=== PATIENT | male | born 1945 | race Caucasian/White ===

== ENCOUNTER → 2016-08-15 | Outpatient (CLI) | payer OTHER, BC ==
[~2016-08-15] MED LIST: ADVIN25/60 INH; CHOL100010 PO; DUTA0.5C PO; FENO145T26 PO; HYDR25TA4 PO; MELO15TA4 PO; OXYC7.5T78 PO; TERA1CAP63 PO; TIZA1CAP2 PO
[2016-08-15 12:17] LABS: BASO ABS # 0.04 K/uL (0-0.2); COMPLETE YES; EOS % 4.4 %; HEMATOCRIT 41.2 % (42-52); IG% 0.2 %; LYMPH % 21.2 %; LYMPH ABS # 0.86 K/uL (1.2-3.4); MEAN CELL VOLUME 98.1 fL (80-100); MEAN CORPUSCULAR HEMOGLOBIN 32.6 pg (25-34); MEAN CORPUSCULAR HGB CONC 33.3 g/dl (32-36); MONO % 8.4 %; NEUT % 64.8 %; PLATELET COUNT 187 K/uL (130-400); WHITE BLOOD COUNT 4.05 K/uL (4.8-10.8)
[2016-08-15 12:34] LABS: CALCIUM 9.2 mg/dl (8.5-10.1)
[2016-08-15 12:38] LABS: ALT/SGPT 21 U/L (12-78); BLOOD UREA NITROGEN 23 mg/dl (7-18); BUN/CREATININE RATIO 20.7 (10-20); CARBON DIOXIDE 26 mmol/L (21-32); CHLORIDE 108 mmol/L (98-107); CHOLESTEROL 139 mg/dl (0-200); GLUCOSE 97 mg/dl (70-99); POTASSIUM 3.7 mmol/L (3.5-5.1); SODIUM 141 mmol/L (136-145)
[2016-08-15 12:42] LABS: ALB/GLOB RATIO 1.2 (0.9-2); ALKALINE PHOSPHATASE 32 U/L (45-117); AST/SGOT 23 U/L (15-37); FERRITIN 170.3 ng/ml (8.0-388.0); HDL CHOLESTEROL 69 mg/dl; LDL CHOLESTEROL CALCULATED 63 mg/dl; TRIGLYCERIDES 33 mg/dl (0-150); VERY LOW DENSITY LIPOPROT CALC 7 mg/dl
== END | disposition home or self-care (01) ==
LOC: C.LABPBG 10:32
PROVIDERS: ATTEND Nurse Practitioner Family
DX: J45.909 Unspecified asthma, uncomplicated (principal); E53.8 Deficiency of other specified B group vitamins; E78.00 Pure hypercholesterolemia, unspecified; E55.9 Vitamin D deficiency, unspecified

== ENCOUNTER → 2016-08-16 | Outpatient (CLI) | payer OTHER, BC ==
[~2016-08-16] MED LIST changes: +OPTIRAY 320 IV PRN
--- NOTE | 2016-08-16 11:14 | DIAGNOSTIC IMAGING REPORT ---
CHEST CT WITH CONTRAST CT DOSE: 439.36 mGy.cm HISTORY: R91.8 Multiple pulmonary nodules TECHNIQUE: Multiaxial CT images of the chest were performed following the intravenous administration of contrast. COMPARISON: Chest CTA 10/08/2014. FINDINGS: Mild emphysema. No pleural effusions. No pneumothorax. Stable 4 mm subpleural nodule along the right minor fissure on image 160. A 5 mm subpleural nodular density within the base of the lingula on image 228 favors atelectasis or scarring. There is a stable 5 mm nodule at the base of the right lower lobe on image 233. The central airways are patent. Cholelithiasis. The visualized liver, spleen, and adrenal glands are unremarkable. No mediastinal or hilar lymphadenopathy. The heart is normal in size. Normal caliber thoracic aorta. Central pulmonary arteries are patent. Stable fat-containing midline anterior Morgagni hernia. IMPRESSION: 1. Stable subcentimeter nodules within the right lung with the largest measuring 5 mm as described above. Please refer to the chart below for recommended follow-up. 2. Mild emphysema. 3. 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 Please refer to below summary of Fleischner criteria recommendations for follow-up of incidental CT nodules (Flores Dominguez, Guidelines for management of small pulmonary nodules detected on CT scans: A statement from the Fleischner Society, Radiology 237: [phone].) SOLID NODULES Solitary nodule size: <6 mm * Low risk patients: no follow-up needed * high risk patients: optional CT at 12 months Solitary nodule size: 6-8 mm * Low risk patients: follow-up at 6-12 months, then consider further follow-up at 18-24 months * high risk patients: initial follow-up CT at 6-12 months and then at 18-24 months if no change Solitary nodule size: >8 mm * either low or high risk patients - consider follow-up CT at 3 months, and/or CT-PET, and/or biopsy Multiple nodules size: <6 mm * Low risk patients: no routine follow-up * high risk patients: optional CT at 12 months Multiple nodules size: 6-8 mm * Low risk patients: follow-up at 3-6 months, then consider further follow-up at 18-24 months * high risk patients: follow-up at 3-6 months, then at 18-24 months if no change Multiple nodules size: >8 mm * Low risk patients: follow-up at 3-6 months, then consider further follow-up at 18-24 months * high risk patients: follow-up at 3-6 months, then at 18-24 months if no change Note: newly detected indeterminate nodule in persons 35 years of age or older. * Low risk patients: minimal or absent history of smoking and/or other known risk factors * high risk patients: history of smoking or of other known risk factors (e.g. first degree relative with lung cancer, or exposure to asbestos, radon, uranium) * if a nodule up to 8 mm is partly solid or is ground glass further follow-up is required after 24 months to exclude possible slow growing adenocarcinoma (BECCA) SUBSOLID NODULES Solitary pure ground-glass nodule * nodule size <6 mm - no CT follow-up required * nodule size >=6 mm - follow-up CT at 6-12 months, then every 2 years until 5 years Solitary part-solid nodule * nodule size <6 mm - no CT follow-up required * nodule size >=6 mm - follow-up CT at 3-6 months. If unchanged, and solid component remains <6 mm, then annual follow-up for 5 years Multiple subsolid nodules * nodule size <6 mm - follow-up CT at 3-6 months, consider further follow-up at 2 and 4 years if stable * nodule size >=6 mm - follow-up CT at 3-6 months, subsequent management based on the most suspicious nodule(s) Electronically signed by: Pawel Mittal M.D. 08/16/2016 11:13 AM Dictated Date/Time: 08/16/2016 11:04 AM
== END | disposition home or self-care (01) ==
LOC: C.CTS 09:45
PROVIDERS: ATTEND Nurse Practitioner Family
DX: R91.8 Other nonspecific abnormal finding of lung field (principal); K44.9 Diaphragmatic hernia without obstruction or gangrene

== ENCOUNTER → 2016-08-29 | Outpatient (CLI) | payer OTHER, BC ==
[~2016-08-29] MED LIST changes: -OPTIRAY 320 IV PRN
== END | disposition home or self-care (01) ==
LOC: C.LABPBG 09:22
PROVIDERS: ATTEND Nurse Practitioner Family
DX: E67.3 Hypervitaminosis D (principal)

== ENCOUNTER → 2016-09-27 | Outpatient (CLI) | payer OTHER, BC | END | disposition home or self-care (01) | LOC: C.LABPBG 12:20 | PROVIDERS: ATTEND Nurse Practitioner Family | DX: E67.3 Hypervitaminosis D (principal) ==

== ENCOUNTER → 2016-10-26 | Outpatient (CLI) | payer OTHER, BC | END | disposition home or self-care (01) | LOC: C.LABPBG 11:17 | PROVIDERS: ATTEND Nurse Practitioner Family | DX: E67.3 Hypervitaminosis D (principal) ==

== ENCOUNTER → 2016-12-05 | Outpatient (CLI) | payer OTHER, BC ==
[2016-12-05 12:23] LABS: BASO % 0.8 %; BASO ABS # 0.04 K/uL (0-0.2); COMPLETE YES; EOS % 3.8 %; HEMATOCRIT 41.5 % (42-52); IG% 0.2 %; LYMPH % 22.8 %; LYMPH ABS # 1.13 K/uL (1.2-3.4); MEAN CELL VOLUME 97.4 fL (80-100); MEAN CORPUSCULAR HEMOGLOBIN 34.3 pg (25-34); MEAN CORPUSCULAR HGB CONC 35.2 g/dl (32-36); MEAN PLATELET VOLUME 10.5 fL (7.4-10.4); MONO % 11.3 %; NEUT % 61.1 %; PLATELET COUNT 178 K/uL (130-400); RED BLOOD COUNT 4.26 M/uL (4.7-6.1); WHITE BLOOD COUNT 4.96 K/uL (4.8-10.8)
[2016-12-05 12:38] LABS: ALT/SGPT 22 U/L (12-78); AST/SGOT 24 U/L (15-37); BLOOD UREA NITROGEN 18 mg/dl (7-18); BUN/CREATININE RATIO 19.6 (10-20); CALCIUM 9.3 mg/dl (8.5-10.1); CARBON DIOXIDE 29 mmol/L (21-32); CHLORIDE 106 mmol/L (98-107); CHOLESTEROL 132 mg/dl (0-200); CREATININE 0.94 mg/dl (0.60-1.40); GLUCOSE 92 mg/dl (70-99); POTASSIUM 3.3 mmol/L (3.5-5.1); SODIUM 141 mmol/L (136-145); TRIGLYCERIDES 40 mg/dl (0-150); VERY LOW DENSITY LIPOPROT CALC 8 mg/dl
[2016-12-05 12:47] LABS: ALB/GLOB RATIO 1.2 (0.9-2); ALKALINE PHOSPHATASE 37 U/L (45-117); HDL CHOLESTEROL 65 mg/dl; LDL CHOLESTEROL CALCULATED 59 mg/dl
== END | disposition home or self-care (01) ==
LOC: C.LABPBG 10:22
PROVIDERS: ATTEND Family Medicine
DX: I10 Essential (primary) hypertension (principal); E78.00 Pure hypercholesterolemia, unspecified; R41.3 Other amnesia

== ENCOUNTER → 2016-12-14 | Outpatient (CLI) | payer OTHER, BC ==
[~2016-12-14] MED LIST changes: +GADAVIST IV PRN
--- NOTE | 2016-12-14 12:21 | DIAGNOSTIC IMAGING REPORT ---
MRI OF THE BRAIN WITHOUT AND WITH IV CONTRAST CLINICAL HISTORY: Memory changes. COMPARISON STUDY: No previous studies for comparison. TECHNIQUE: Utilizing a 1.5 Lola magnet and dedicated coil, multiplanar, multiecho imaging of the brain was performed pre and postcontrast administration. IV administration of 7 mL of Gadavist contrast was uneventful. FINDINGS: There are no areas of restricted diffusion. No acute intracranial hemorrhage, midline shift or mass effect is present. Mild atrophy is noted. There is no intracranial mass or pathologic enhancement. Mild to moderate white matter T2 hyperintense foci suggest small vessel disease. Calvarial signal is maintained. Flow-voids for the major intracranial vessels are present. Orbits and sinuses are unremarkable. There is no fluid within the mastoid air cells. IMPRESSION: 1. No acute intracranial findings. 2. No intracranial mass or pathologic enhancement. 3. Mild ventricular dilatation likely due to atrophy. Mild to moderate small vessel disease. Electronically signed by: Polo Rondon M.D. 12/14/2016 12:20 PM Dictated Date/Time: 12/14/2016 12:17 PM
== END | disposition home or self-care (01) ==
LOC: C.MRIBC 11:06
PROVIDERS: ATTEND Family Medicine
DX: R41.3 Other amnesia (principal)

== ENCOUNTER → 2016-12-31 | Outpatient (CLI) | payer OTHER, BC ==
[~2016-12-31] MED LIST changes: -GADAVIST IV PRN
[2016-12-31 16:58] LABS: BLOOD UREA NITROGEN 20 mg/dl (7-18); BUN/CREATININE RATIO 21.3 (10-20); CALCIUM 9.2 mg/dl (8.5-10.1); CARBON DIOXIDE 30 mmol/L (21-32); CHLORIDE 107 mmol/L (98-107); CREATININE 0.95 mg/dl (0.60-1.40); GLUCOSE 120 mg/dl (70-99); MAGNESIUM 2.2 mg/dl (1.8-2.4); POTASSIUM 3.5 mmol/L (3.5-5.1); SODIUM 142 mmol/L (136-145)
== END | disposition home or self-care (01) ==
LOC: C.LABPBG 10:50
PROVIDERS: ATTEND Family Medicine
DX: E87.6 Hypokalemia (principal)

== ENCOUNTER 2017-03-31 22:03 | Emergency (ER) | payer OTHER, BC ==
[~2017-03-31 22:03] MED LIST changes: +MELO-83 PO; -MELO15TA4 PO
[2017-03-31 22:11] VITALS: TEMP 36.5; Ht 188 cm
[2017-03-31] MEDS ORDERED: SODIUM CHLORIDE 0.9% 1000ML 1,000 ML IV STA (22:25)
[2017-03-31] MEDS ORDERED: CYCL10TA7 PO (22:50)
[2017-03-31] MEDS ORDERED: ARC10 PO (22:51)
[2017-03-31] MEDS ORDERED: TIOT1AER2 INH (22:52)
[2017-03-31 23:01] LABS: HEMOGLOBIN 12.7 g/dL (14.0-18.0); MEAN CELL VOLUME 96.7 fL (80-100); MEAN CORPUSCULAR HEMOGLOBIN 32.3 pg (25-34); MEAN CORPUSCULAR HGB CONC 33.4 g/dl (32-36); PLATELET COUNT 181 K/uL (130-400); RED CELL DISTRIBUTION WIDTH CV 13.2 % (11.5-14.5); RED CELL DISTRIBUTION WIDTH SD 46.9 fL (36.4-46.3); WHITE BLOOD COUNT 6.39 K/uL (4.8-10.8)
--- NOTE | 2017-03-31 23:02 | DIAGNOSTIC IMAGING REPORT ---
CHEST ONE VIEW PORTABLE CLINICAL HISTORY: CHEST PAIN dyspnea COMPARISON STUDY: 10/08/2014 FINDINGS: The bones soft tissues and hemidiaphragms are normal. The cardiomediastinal silhouette is normal. The lungs are clear. The pulmonary vasculature is normal. IMPRESSION: Negative chest. The above report was generated using voice recognition software. It may contain grammatical, syntax or spelling errors. Electronically signed by: Chandan Wren M.D. 03/31/2017 11:00 PM Dictated Date/Time: 03/31/2017 11:00 PM
[2017-03-31 23:20] VITALS: O2SAT 97
[2017-03-31 23:21] LABS: ALBUMIN 3.8 gm/dl (3.4-5.0); ALT/SGPT 21 U/L (12-78); BASO % 0.5 %; BASO ABS # 0.03 K/uL (0-0.2); BLOOD UREA NITROGEN 22 mg/dl (7-18); CARBON DIOXIDE 27 mmol/L (21-32); CREATININE 0.98 mg/dl (0.60-1.40); EOS % 1.3 %; EOS ABS # 0.08 K/uL (0-0.5); GLUCOSE 88 mg/dl (70-99); IG# 0.01 K/uL (0.00-0.02); LIPASE 245 U/L (73-393); LYMPH % 13.6 %; LYMPH ABS # 0.87 K/uL (1.2-3.4); MONO % 8.9 %; MONO ABS # 0.57 K/uL (0.11-0.59); NEUT % 75.5 %; NEUT ABS # 4.83 K/uL (1.4-6.5); POTASSIUM 3.4 mmol/L (3.5-5.1); SODIUM 141 mmol/L (136-145)
[2017-03-31 23:26] LABS: ALKALINE PHOSPHATASE 38 U/L (45-117); AST/SGOT 22 U/L (15-37)
--- NOTE | 2017-04-01 00:27 | EMERGENCY ROOM VISIT NOTE ---
History Report prepared by Karol: Luis Manuel Demarco Under the Supervision of: Dr. Martín Hunter M.D. First contact with patient: 22:19 Chief Complaint: SYNCOPE Stated Complaint: SYNCOPE Nursing Triage Summary: Pt arrived by EMS from home. Pt passed out after vomiting. History of Present Illness The patient is a 71 year old male who presents to the Emergency Room by EMS with complaints of a syncopal episode occurring just prior to arrival. He states that he passed out immediately after vomiting. He states that he had just eaten prior to the vomiting. The patient admits to drinking three beers as well. He states that he was down until EMS helped him up. He denies any nausea, abdominal pain, fevers, chills, cough, congestion, or headaches. The patient is not on any blood thinners. He did not hit his head during the episode. He states "I feel normal". Source of History: patient Onset: Just prior to arrival Quality: other (syncope) Timing: other (episode) Associated Symptoms: + vomiting, No fevers, No chills, No headache, No cough , No nausea, No abdominal pain Note: The patient denies congestion. Review of Systems See HPI for pertinent positives and negatives. A total of ten systems were reviewed and were otherwise negative. Past Medical & Surgical Medical Problems: (1) No Known Active Medical Problems Family History No pertinent family history stated. Social History Smoking Status: Current Some Day Smoker Alcohol Use: occasionally Marital Status: Housing Status: lives with significant other Current/Historical Medications Scheduled Donepezil HCl (Donepezil HCl), 10 MG PO HS Dutasteride (Avodart), 0.5 MG PO DAILY Fenofibrate (Tricor), 145 MG PO QPM Fluticasone Prop/Salmeterol (Advair Diskus 250/50 60 Dose), 1 PUFF INH BID Hydrochlorothiazide (Hctz), 25 MG PO DAILY Terazosin Hcl (Hytrin), 10 MG PO HS Tiotropium [place] (Spiriva Respimat), 1 PUFF INH DAILY Scheduled PRN Cyclobenzaprine HCl (Cyclobenzaprine HCl), 10 MG PO TID PRN for Muscle Spasms Allergies Coded Allergies: No Known Allergies (Unverified , 03/31/17) Physical Exam Vital Signs Date Time Temp Pulse Resp B/P (MAP) Pulse Ox O2 Delivery O2 Flow Rate FiO2 1/1/18 01:09 74 17 124/66 99 03/31/17 23:20 78 18 113/60 95 Room Air 03/31/17 23:20 97 Room Air 03/31/17 22:55 Room Air 03/31/17 22:13 59 03/31/17 22:11 36.5 62 18 151/91 98 Room Air Physical Exam GENERAL: Awake, pleasantly demented, well-appearing, in no distress HENT: Normocephalic, atraumatic. Dry mucous membranes. EYES: Normal conjunctiva. Sclera non-icteric. NECK: Supple. No nuchal rigidity. FROM. No JVD. RESPIRATORY: Clear to auscultation. CARDIAC: Regular rate, normal rhythm. Extremities warm and well perfused. Pulses equal. ABDOMEN: Soft, non-distended. No tenderness to palpation. No rebound or guarding. No masses. RECTAL: Deferred. MUSCULOSKELETAL: Chest examination reveals no tenderness. The back is symmetrical on inspection without obvious abnormality. There is no CVA tenderness to palpation. No joint edema. LOWER EXTREMITIES: Calves are equal size bilaterally and non-tender. No edema. No discoloration. NEURO: Normal sensorium. No sensory or motor deficits noted. SKIN: No rash or jaundice noted. Medical Decision & Procedures ER Provider Diagnostic Interpretation: X-ray results as stated below per my review and radiologist interpretation: CHEST ONE VIEW PORTABLE FINDINGS: The bones soft tissues and hemidiaphragms are normal. The cardiomediastinal silhouette is normal. The lungs are clear. The pulmonary vasculature is normal. IMPRESSION: Negative chest. The above report was generated using voice recognition software. It may contain grammatical, syntax or spelling errors. Electronically signed by: Chandan Wren M.D. 03/31/2017 11:[address] results per statrad and my review. CT HEAD: No acute intracranial hemorrhage, skull fracture, or other acute intracranial abnormality. Atrophy and chronic small vessel ischemic disease. Laboratory Results 03/31/17 22:50 Red Blood Count 3.93, Mean Corpuscular Volume 96.7, Mean Corpuscular Hemoglobin 32.3, Mean Corpuscular Hemoglobin Concent 33.4, Mean Platelet Volume 9.0, Neutrophils (%) (Auto) 75.5, Lymphocytes (%) (Auto) 13.6, Monocytes (%) (Auto) 8.9, Eosinophils (%) (Auto) 1.3, Basophils (%) (Auto) 0.5, Neutrophils # (Auto) 4.83, Lymphocytes # (Auto) 0.87, Monocytes # (Auto) 0.57, Eosinophils # (Auto) 0.08, Basophils # (Auto) 0.03 03/31/17 22:50 Test 03/31/17 22:50 03/31/17 23:04 White Blood Count 6.39 K/uL (4.8-10.8) Red Blood Count 3.93 M/uL (4.7-6.1) Hemoglobin 12.7 g/dL (14.0-18.0) Hematocrit 38.0 % (42-52) Mean Corpuscular Volume 96.7 fL (80-100) Mean Corpuscular Hemoglobin 32.3 pg (25-34) Mean Corpuscular Hemoglobin Concent 33.4 g/dl (32-36) Platelet Count 181 K/uL (130-400) Mean Platelet Volume 9.0 fL (7.4-10.4) Neutrophils (%) (Auto) 75.5 % Lymphocytes (%) (Auto) 13.6 % Monocytes (%) (Auto) 8.9 % Eosinophils (%) (Auto) 1.3 % Basophils (%) (Auto) 0.5 % Neutrophils # (Auto) 4.83 K/uL (1.4-6.5) Lymphocytes # (Auto) 0.87 K/uL (1.2-3.4) Monocytes # (Auto) 0.57 K/uL (0.11-0.59) Eosinophils # (Auto) 0.08 K/uL (0-0.5) Basophils # (Auto) 0.03 K/uL (0-0.2) RDW Standard Deviation 46.9 fL (36.4-46.3) RDW Coefficient of Variation 13.2 % (11.5-14.5) Immature Granulocyte % (Auto) 0.2 % Immature Granulocyte # (Auto) 0.01 K/uL (0.00-0.02) Red Blood Cell Morphology Unremarkable Anion Gap 8.0 mmol/L (3-11) Estimated GFR () 88.9 Estimated GFR (Non- 76.7 BUN/Creatinine Ratio 22.6 (10-20) Calcium Level 9.0 mg/dl (8.5-10.1) Total Bilirubin 0.4 mg/dl (0.2-1) Direct Bilirubin 0.1 mg/dl (0-0.2) Aspartate Amino Transf (AST/SGOT) 22 U/L (15-37) Alanine Aminotransferase (ALT/SGPT) 21 U/L (12-78) Alkaline Phosphatase 38 U/L (45-117) Troponin I < 0.015 ng/ml (0-0.045) Total Protein 7.0 gm/dl (6.4-8.2) Albumin 3.8 gm/dl (3.4-5.0) Lipase 245 U/L (73-393) Ethyl Alcohol mg/dL 115.1 mg/dl (0-3) Laboratory results reviewed by me Medications Administered Medications (Trade) Dose Ordered Sig/Christen Route Start Time Stop Time Status Last Admin Dose Admin Sodium Chloride 1,000 ml @ 999 mls/hr Q1H1M STAT IV 03/31/17 22:25 03/31/17 23:25 DC 03/31/17 22:25 999 MLS/HR ECG Indication: syncope Rate (beats per minute): 63 Rhythm: normal sinus Findings: no acute ischemic change, other (Normal axis) ED Course 2220: The patient was evaluated in room B5. A complete history and physical exam was performed. 0025: I reevaluated the patient. Discussed results and discharge instructions: he verbalized understanding and agreement. The patient is ready for discharge. Medical Decision I reviewed the patient's past medical history, medications, and the nursing notes as described above. The patient's presentation and history were concerning for vasovagal/ orthostatic syncope, ACS, arrhythmia, dehydration, electrolyte abnormalities, pneumonia, bronchitis, UTI and ICH. The patient is a 71 y/o gentleman who presents to the emergency department with syncopal episode in the setting of drinking etoh tonight and going to the bathroom to vomit per hpi. On arrival the patient is well-appearing, pleasantly demented. No signs of external trauma despite report of hitting head on toilet by and neighbor. CT head negative. No pain to CTL spine. No step-offs. FROM. EKG unremarkable. Labs notable for etoh 115 and otherwise unremarkable. BUN/Cr > 20 suggesting mild dehydration. Patient continued to appear well during ED observation. Given IVF hydration and able to ambulate with steady gate at his baseline. Neighbor and at bedside to take patient home. Findings and plan for follow-up reviewed with patient. Patient agreeable and d/c 'd per discharge instructions. Medication Reconcilliation Current Medication List: was personally reviewed by me Blood Pressure Screening Patient's blood pressure: Normal blood pressure Blood pressure disposition: Did not require urgent referral Impression Primary Impression: Syncope and collapse Additional Impression: Alcohol intoxication Scribe Attestation The scribe's documentation has been prepared under my direction and personally reviewed by me in its entirety. I confirm that the note above accurately reflects all work, treatment, procedures, and medical decision making performed by me. Departure Information Dispostion Home / Self-Care Referrals Delmis Rouse DO (PCP) Patient Instructions Alcohol Intoxication - [facility], ED Syncope Vasovagal, My [facility] Additional Instructions Please follow up with your primary care physician on Saturday for re-evaluation. Your syncopal episode (passing out) was most likely related to your alcohol intoxication that led to vomiting this evening. Otherwise, your exam, EKG, xray, CT scan of your head, and lab results did not show signs of an emergent condition at this time. Return to the emergency department for worsening symptoms as described in the accompanying instructions. Problem Qualifiers
[2017-04-01 01:09] VITALS: BP 124/66; PULSE 74; O2SAT 99
--- NOTE | 2017-04-01 06:51 | DIAGNOSTIC IMAGING REPORT ---
CT SCAN OF THE BRAIN WITHOUT IV CONTRAST CLINICAL HISTORY: Syncope. COMPARISON STUDY: MRI of the brain dated 12/14/2016 TECHNIQUE: Unenhanced axial CT scan of the brain is performed from the vertex to the skull base. A dose lowering technique was utilized adhering to the principles of ALARA. CT DOSE: 614.27 mGy.cm FINDINGS: Brain parenchyma: There are age-related involutional changes noting mild subcortical and periventricular microangiopathic change. There is no hemorrhage, mass effect, or evidence of acute territorial ischemia by CT criteria. Lundy-white matter is preserved. No extra-axial fluid collection is seen. Ventricles, sulci, cisterns: Prominent secondary to involutional change. Intracranial vasculature: There is mild atherosclerotic calcification of the cavernous carotid arteries. Calvarium: Unremarkable. Sinuses and mastoids: The visualized paranasal sinuses are clear. The mastoid air cells are well pneumatized. Orbits: The bony orbits are grossly intact. IMPRESSION: There is no hemorrhage, mass effect, or evidence of acute territorial ischemia by CT criteria. Electronically signed by: Chava Cooper M.D. 04/01/2017 6:49 AM Dictated Date/Time: 04/01/2017 6:47 AM
== END 2017-04-01 01:10 | disposition home or self-care (01) ==
LOC: EDBD 22:03 → C.EDB 22:04
DX: R55 Syncope and collapse (principal); F10.129 Alcohol abuse with intoxication, unspecified; F17.200 Nicotine dependence, unspecified, uncomplicated